=== PATIENT | female | born 1970 | race Caucasian/White ===

== ENCOUNTER 2022-06-14 06:59 | Emergency (ER) | payer BC ==
[2022-06-14] MEDS ORDERED: predniSONE 20 MG Tab PO ONE (08:28)
[2022-06-14] MEDS ORDERED: Ketorolac 30 MG/ML SDV IM ONE (08:28)
[2022-06-14 08:54] LABS: ESTIMATED GFR 103 mL/min (>60)
[2022-06-14] MEDS ORDERED: Acetaminophen/HYDROcodone 325-5 MG Tab PO ONE (11:02)
== END 2022-06-14 11:51 | disposition home or self-care (01) ==
LOC: JD.ED 06:59
DX: M12.9 Arthropathy, unspecified (principal)
CPT/HCPCS: 36415; 73610; 80048; 85025; 86140; 96372; 99283; A9270; J1885; J7512

== ENCOUNTER 2024-03-18 01:59 | Emergency (ER) | payer BC ==
[2024-03-18] MEDS ORDERED: Sodium Chloride 0.9% 10 ML Syringe FLUSH PRN (03:19)
[2024-03-18] MEDS ORDERED: Naloxone 0.4 MG/ML SDV IVPUSH PRN (03:22)
[2024-03-18] MEDS: Sodium Chloride 0.9% 1,000 ML IV ONE (03:40)
[2024-03-18] MEDS: Morphine 2 MG/ML SYRINGE IVPUSH ONE (03:40)
[2024-03-18 03:42] LABS: BASOPHILS PERCENT AUTO 0.8 % (0.0-1.0); EOSINOPHILS ABSOLUTE AUTO 0.1 K/mm3 (0.0-0.4); EOSINOPHILS PERCENT AUTO 1.8 % (0.0-6.0); HEMATOCRIT 37.1 % (37.0-47.0); HEMOGLOBIN 12.5 gm/dl (12.0-16.0); IMMATURE GRAN ABSOLUTE AUTO 0.01 K/mm3 (0.00-0.05); IMMATURE GRAN PERCENT AUTO 0.3 % (0.0-0.4); LYMPHOCYTES ABSOLUTE AUTO 1.3 K/mm3 (1.0-4.8); LYMPHOCYTES PERCENT AUTO 34.3 % (24.0-44.0); MEAN CORPUSCULAR HEMOGLOBIN 33.7 pg (28.0-32.0); MEAN CORPUSCULAR HGB CONC 33.7 g/dl (32.0-36.0); MEAN PLATELET VOLUME 8.5 fl (9.4-12.3); MONOCYTES ABSOLUTE AUTO 0.4 K/mm3 (0.0-0.8); MONOCYTES PERCENT AUTO 11.3 % (0.0-8.0); NEUTROPHILS PERCENT AUTO 51.5 % (41.0-71.0); PLATELET COUNT,PLT 230 K/mm3 (150-400); RED BLOOD CELL COUNT 3.71 M/mm3 (4.10-5.30); WHITE BLOOD CELL COUNT,WBC 3.91 K/mm3 (3.9-11.3)
[2024-03-18 04:10] LABS: INR 0.98; PROTHROMBIN TIME 10.4 SECONDS (9.7-12.0)
[2024-03-18 04:54] LABS: A/G RATIO 1.2 (1-2); ALANINE AMINOTRANSFERASE,ALT 24 U/L (14-59); ALBUMIN 3.6 g/dl (3.4-5.0); ALKALINE PHOSPHATASE 89 U/L (46-116); ANION GAP 15.6 (5-15); ASPARTATE AMNIOTRANSFERASE,AST 25 U/L (15-37); BILIRUBIN TOTAL 0.2 mg/dL (0.2-1.0); BLOOD UREA NITROGEN,BUN 10 mg/dL (7-18); BUN/CREATININE RATIO 14.3 (14-18); CALCIUM 8.5 mg/dL (8.5-10.1); CARBON DIOXIDE,CO2 27 mEq/L (21-32); CHLORIDE,CL 101 mEq/L (98-107); CREATININE 0.7 mg/dL (0.55-1.02); ESTIMATED GFR 101 mL/min (>60); GLUCOSE RANDOM 115 mg/dL (70-99); MAGNESIUM 1.6 mg/dL (1.8-2.4); POTASSIUM,K 3.6 mEq/L (3.5-5.1); PROTEIN TOTAL,TP 6.6 g/dl (6.4-8.2); SODIUM,NA 140 mEq/L (136-145)
[2024-03-18 05:08] LABS: LACTIC ACID 2.2 mmol/L (0.4-2.0); TROPONIN I HIGH SENSITIVITY < 4 pg/mL (<=51)
[2024-03-18] MEDS ORDERED: Sodium Chloride 0.9% 1,000 ML IV ONE (05:08)
[2024-03-18] MEDS: ceFAZolin 2 GM in Sodium Chloride 0.9% 50 ML IV ONE (06:53)
[2024-03-18 07:35] LABS: LACTIC ACID 2.2 mmol/L (0.4-2.0)
== END 2024-03-18 08:10 | disposition home or self-care (01) ==
LOC: JD.ED 01:59
DX: S42.401A Unspecified fracture of lower end of right humerus, initial encounter for closed fracture (principal); W10.9XXA Fall (on) (from) unspecified stairs and steps, initial encounter
CPT/HCPCS: 29105; 36415; 70450; 70450-26; 71046; 71046-26; 72125; 72125-26; 73080-26-RT; 73080-RT; 73590-26-RT; 73590-RT; 73700-26-RT; 73700-RT; 80053; 82550; 83605; 83735; 84484; 85025; 85610; 85730; 96361; 96365; 96375; 99283; 99284-25; J0690; J2270; J3490; J7030

== ENCOUNTER 2024-03-19 21:50 | Emergency (ER) | payer BC | END 2024-03-19 22:35 | disposition left against medical advice (07) | LOC: JD.ED 21:50 | DX: Z53.21 Procedure and treatment not carried out due to patient leaving prior to being seen by health care provider (principal) ==

== ENCOUNTER 2024-03-31 08:36 | Day surgery (SDC) | payer BC ==
[~2024-03-31 08:36] MED LIST: Sodium Chloride 0.9% 10 ML Syringe FLUSH PRN; Sodium Chloride 0.9% 10 ML Syringe FLUSH SCH
[2024-03-31] MEDS: Lactated Ringers 1,000 ML IV SCH (09:05)
[2024-03-31] MEDS ORDERED: fentaNYL 250 MCG/5 ML SDV ONE (10:44)
[2024-03-31] MEDS ORDERED: Propofol 200 MG/20 ML SDV ONE (10:44)
[2024-03-31] MEDS ORDERED: Midazolam 1 MG/ML 2 ML SDV ONE ×2 (10:45→11:29)
[2024-03-31] MEDS ORDERED: ceFAZolin 2 GM Vial ONE (10:46)
[2024-03-31] MEDS ORDERED: Rocuronium 50 MG/5 ML Vial ONE (10:47)
[2024-03-31] MEDS ORDERED: Lidocaine 1% 2 ML ONE (10:50)
[2024-03-31] MEDS ORDERED: Dexamethasone 4 MG/ML 5 ML MDV ONE (10:51)
[2024-03-31] MEDS ORDERED: Ropivacaine 0.5% 5 MG/ML 30 ML SDV ONE (10:51)
[2024-03-31] MEDS ORDERED: dexmedeTOMIDine HCl 200 MCG/2 ML SDV ONE (10:51)
[2024-03-31] MEDS ORDERED: fentaNYL 100 MCG/2 ML SDV ONE (11:51)
[2024-03-31] MEDS ORDERED: Ondansetron 4 MG/2 ML SDV ONE (11:53)
[2024-03-31] MEDS ORDERED: Lactated Ringers 1,000 ML ONE (12:01)
[2024-03-31] MEDS ORDERED: HYDROmorphone 0.5 MG/0.5 ML Syringe IVPUSH PRN (12:49)
[2024-03-31] MEDS ORDERED: fentaNYL 100 MCG/2 ML SDV IVPUSH PRN (12:49)
== END 2024-03-31 15:00 | disposition home or self-care (01) ==
LOC: JD.SDS 08:36
PROVIDERS: ATTEND Orthopaedic Surgery
DX: S52.022A Displaced fracture of olecranon process without intraarticular extension of left ulna, initial encounter for closed fracture (principal); E03.9 Hypothyroidism, unspecified; F41.9 Anxiety disorder, unspecified; F32.A Depression, unspecified; Z79.890 Hormone replacement therapy; Z79.899 Other long term (current) drug therapy; X58.XXXA Exposure to other specified factors, initial encounter
CPT/HCPCS: 24685; 64415; 76000; C1713; J0690; J1100; J2250; J2405; J2704; J2795; J3010; J7120; 01740; J3490

== ENCOUNTER 2025-01-05 08:52 | Day surgery (SDC) | payer BC ==
[2025-01-05] MEDS: Lactated Ringers 1,000 ML IV SCH (09:15)
[2025-01-05] MEDS ORDERED: Propofol 200 MG/20 ML SDV ONE ×3 (09:55→10:42)
[2025-01-05] MEDS ORDERED: fentaNYL 100 MCG/2 ML SDV ONE ×2 (09:56→10:35)
[2025-01-05] MEDS ORDERED: Midazolam 1 MG/ML 2 ML SDV ONE (09:56)
[2025-01-05] MEDS ORDERED: ceFAZolin 2 GM Vial ONE (09:57)
[2025-01-05] MEDS ORDERED: Lidocaine 1% 2 ML ONE (09:58)
[2025-01-05] MEDS ORDERED: dexmedeTOMIDine HCl 200 MCG/2 ML SDV ONE (09:59)
[2025-01-05] MEDS ORDERED: Ondansetron 4 MG/2 ML SDV ONE (09:59)
[2025-01-05] MEDS ORDERED: Dexamethasone 4 MG/ML 5 ML MDV ONE (09:59)
[2025-01-05] MEDS ORDERED: Ropivacaine 0.5% 5 MG/ML 30 ML SDV ONE (09:59)
[2025-01-05] MEDS ORDERED: EPINEPHrine 1 MG/ML SDV ONE (09:59)
[2025-01-05] MEDS ORDERED: Ondansetron 4 MG/2 ML SDV IVPUSH PRN (11:36)
[2025-01-05] MEDS ORDERED: fentaNYL 100 MCG/2 ML SDV IVPUSH PRN (11:36)
[2025-01-05] MEDS ORDERED: HYDROmorphone 0.5 MG/0.5 ML Syringe IVPUSH PRN (11:36)
== END 2025-01-05 12:15 | disposition home or self-care (01) ==
LOC: JD.SDS 08:52
PROVIDERS: ATTEND Orthopaedic Surgery
DX: T84.84XA Pain due to internal orthopedic prosthetic devices, implants and grafts, initial encounter (principal); E03.9 Hypothyroidism, unspecified; Z79.899 Other long term (current) drug therapy; Z79.890 Hormone replacement therapy
CPT/HCPCS: 20680; 64415; 76000; J0171; J0690; J1100; J2003; J2250; J2405; J2704; J2795; J3010; J7120; 01740